=== PATIENT | male | born 1985 | race Caucasian/White ===

== ENCOUNTER → 2019-11-08 | Emergency (ER) | payer SELFPAY ==
[~2019-11-08] MED LIST: levETIRAcetam 500 MG/5 ML VIAL ONE
== END ==
LOC: BURERS 12:58
DX: R56.9 Unspecified convulsions (principal); Z91.14 Patient's other noncompliance with medication regimen; Z79.899 Other long term (current) drug therapy
CPT/HCPCS: 96374; J1953

== ENCOUNTER 2020-10-06 22:42 | Emergency (ER) | payer OTHER, SELFPAY ==
[2020-10-07 14:10] LABS: SARS-CoV-2 PCR by NAA Not Detected (NotDetected)
== END 2020-10-06 23:40 | disposition home or self-care (01) ==
LOC: BURERS 22:42
DX: F41.9 Anxiety disorder, unspecified (principal); G40.909 Epilepsy, unspecified, not intractable, without status epilepticus; Z20.822 Contact with and (suspected) exposure to COVID-19
CPT/HCPCS: 87635; 99284; U0003; U0005

== ENCOUNTER 2022-10-27 10:00 | Emergency (ER) | payer BC | END 2022-10-27 10:43 | disposition home or self-care (01) | LOC: BURERS 10:00 | DX: G40.909 Epilepsy, unspecified, not intractable, without status epilepticus (principal); Z79.899 Other long term (current) drug therapy | CPT/HCPCS: 99284 ==